=== PATIENT | female | born 1940 | race Caucasian/White ===

== ENCOUNTER 2016-07-11 14:43 | Emergency (ER) | payer OTHER ==
[~2016-07-11] VITALS: Ht 167.6 cm; Wt 95.3 kg
--- NOTE | 2016-07-11 15:34 | PHYS DOC ---
Past Medical History Past Medical History: Diabetes-Type II, GERD Past Surgical History: Tonsillectomy, Tubal ligation Alcohol Use: Occasionally Drug Use: None Adult General Chief Complaint Chief Complaint: MECHANICAL FALL HPI HPI 76-year-old female who states she was out walking and slipped on a nut from a tree and ended on her right side impacting her right side of her head and right shoulder and right hip. She is complaining primarily of right hip pain but states she was able to ambulate and actually drove herself into the department for evaluation. She took naproxen for pain and she states it's adequately controlled at this time. She does not believe she had any loss consciousness. She is not taking any blood thinners. Upon my initial evaluation, she is in no acute distress and is fully alert and oriented and able to answer my questions. She complains of only mild headache. She denies any nausea or vomiting. She does have some mild right-sided neck pain as well. Review of Systems Review of Systems Constitutional: Denies fever or chills [] Eyes: Denies change in visual acuity, redness, or eye pain [] HENT: Denies nasal congestion or sore throat [] Respiratory: Denies cough or shortness of breath [] Cardiovascular: No additional information not addressed in HPI [] GI: Denies abdominal pain, nausea, vomiting, bloody stools or diarrhea [] : Denies dysuria or hematuria [] Musculoskeletal: Denies back pain or joint pain [] Integument: Denies rash or skin lesions [] Neurologic: Denies headache, focal weakness or sensory changes [] Endocrine: Denies polyuria or polydipsia [] Allergies Allergies Allergies Coded Allergies Type Severity Reaction Last Updated Verified codeine Allergy Mild Nausea and Vomiting 04/04/15 Yes Physical Exam Physical Exam Constitutional: Well developed, well nourished, no acute distress, non-toxic appearance. [] HENT: Normocephalic, atraumatic, bilateral external ears normal, oropharynx moist, no oral exudates, nose normal. [] Eyes: PERRLA, EOMI, conjunctiva normal, no discharge. [] Neck: Normal range of motion, no tenderness, supple, no stridor. [] Cardiovascular:Heart rate regular rhythm, no murmur [] Lungs & Thorax: Bilateral breath sounds clear to auscultation [] Abdomen: Bowel sounds normal, soft, no tenderness, no masses, no pulsatile masses. [] Skin: Warm, dry, no erythema, no rash. [] Back: No tenderness, no CVA tenderness. [] Extremities: No tenderness, no cyanosis, no clubbing, ROM intact, no edema. [] Neurologic: Alert and oriented X 3, normal motor function, normal sensory function, no focal deficits noted. [] Psychologic: Affect normal, judgement normal, mood normal. [] Current Patient Data Vital Signs Vital Signs Date Time Temp Pulse Resp B/P Pulse Ox O2 Delivery O2 Flow Rate FiO2 07/11/16 15:00 97.6 88 18 161/79 100 Room Air 97.6 EKG EKG [] Radiology/Procedures Radiology/Procedures Plain films of the right hip and AP pelvis demonstrate a right pubic bone fracture which is consistent with her symptoms. In films of her right shoulder as interpreted by the radiologist did not show an acute shoulder abnormality area. CT of her head and neck were negative for any acute abnormalities as well. Course & Med Decision Making Course & Med Decision Making Pertinent Labs and Imaging studies reviewed. (See chart for details) This 68-year-old female who has a right pubic bone fracture will be discharged and told to continue taking her walker and to take aspirin for DVT prophylaxis. I discussed the case with the orthopedic surgeon, Dr. Gutierres, grade with this plan and the she will be safe to be followed in his office in the next several days. Prescriptions for aspirin, Penn, and cyclobenzaprine will be prescribed. I will be explicitly stating to her to use her walker only and to minimize her ambulation as much as possible for the next several days. Dragon Disclaimer Dragon Disclaimer This electronic medical record was generated, in whole or in part, using a voice recognition dictation system. Departure Departure Impression: Primary Impression: Pubic bone fracture Disposition: 01 HOME, SELF-CARE Admitting Physician: Other Condition: STABLE Referrals: CALEB GUTIERRES MD Additional Instructions: Please use your walker at home for the next the several days and follow up with the orthopedic surgeon, Dr. Gutierres, in the next several days. Try to rest and avoid excessive use of your right lower extremity. Take your aspirin as prescribed. Scripts Cyclobenzaprine Hcl 10 Mg [id number] Mg PO TID #15 TAB Prov:NEY MATTA DO 07/11/16 Hydrocodone/Apap 5-325 (Penn 5-325 Tablet)1 Each Tablet1 Tab PO PRN Q6HRS PRN PAIN #10 TAB Ref 0 Prov:NEY MATTA DO 07/11/16 Aspirin 325 Mg [id number] Mg PO DAILY #10 Prov:NEY MATTA DO 07/11/16 NEY MATTA DO Jul 11, 2016 15:34
--- NOTE | 2016-07-11 16:18 | RAD ---
CT of the head without contrast, 07/11/2016: History: Fall, pain Comparison is made to a study from 04/04/2015. The ventricles are within normal limits in size. There is no shift of the midline structures. There is no evidence of acute intracranial hemorrhage or mass effect. There is calcific plaquing of the distal internal carotid and vertebral arteries. Mild mucosal thickening is present in the ethmoid and maxillary sinuses. IMPRESSION: No acute intracranial abnormality is detected. CT of the cervical spine without contrast, 07/11/2016: Noncontrast scans were obtained with multiplanar reconstructions produced. There are mild degenerative changes involving scattered facet joints bilaterally. There are mild scattered spurs in the lower cervical spine. The cervical spinal canal is well maintained. No fracture or dislocation is identified. IMPRESSION: 1. Mild multilevel degenerative change. 2. No acute bony abnormality is detected. PQRS Compliance Statement: One or more of the following individualized dose reduction techniques were utilized for this examination: 1. Automated exposure control 2. Adjustment of the mA and/or kV according to patient size 3. Use of iterative reconstruction technique
--- NOTE | 2016-07-11 16:21 | RAD ---
Right shoulder, 3 views, 07/11/2016: History: Hip and shoulder pain, fall The bony structures are demineralized. No shoulder fracture or dislocation is identified. There are mild degenerative changes at the shoulder. Old healed right-sided rib fractures are present. IMPRESSION: 1. Demineralization. 2. No acute right shoulder abnormality is detected.
--- NOTE | 2016-07-11 16:24 | RAD ---
Pelvis with right hip, 3 views, 07/11/2016: History: Fall, pain There is deformity of the right pubic bone compatible with a fracture extending to involve the superior pubic ramus. The age of this fracture is unclear. No hip fracture or dislocation is identified. There is mild narrowing at both hip joints. IMPRESSION: Right pubic bone fracture of uncertain age. Correlation with the site of the patient's current pain is suggested.
[2016-07-11 17:00] VITALS: BP 157/78
[2016-07-11] MEDS ORDERED: CYCL10TA2 PO (17:15)
[2016-07-11] MEDS ORDERED: ASPI325T4 PO (17:15)
[2016-07-11] MEDS ORDERED: HYDR-971 PO (17:15)
== END 2016-07-11 17:52 | disposition home or self-care (01) ==
LOC: ER 14:43
DX: S32.501A Unspecified fracture of right pubis, initial encounter for closed fracture (principal); E11.9 Type 2 diabetes mellitus without complications; Z98.51 Tubal ligation status; Z88.5 Allergy status to narcotic agent; W01.0XXA Fall on same level from slipping, tripping and stumbling without subsequent striking against object, initial encounter; Y93.89 Activity, other specified; Y92.89 Other specified places as the place of occurrence of the external cause; Y99.8 Other external cause status
CPT/HCPCS: 70450; 72125; 73030; 73502; 99284-25

== ENCOUNTER 2020-08-23 14:46 | Emergency (ER) | payer MEDICARE, OTHER ==
[~2020-08-23] VITALS: Ht 165.1 cm; Wt 95.0 kg
[~2020-08-23 14:46] MED LIST: ASPI325T8 PO; CYCL10TA2 PO; HYDR-3164 PO
--- NOTE | 2020-08-23 15:33 | ED.ADGEN ---
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 Labs she had drawn approximately 2 weeks ago showed a sodium of 125 and a chloride of 90. Her last labs were in April which showed a sodium of 136 and a chloride of 100. Patient denies any symptoms, changes in gait, confusion. Denies any new medications. Takes furosemide and potassium and has not changed those a long time. Patient states she normally does not drink enough water but on the day she was having labs done she recalls drinking approximately 2 bottles of water prior to prepare for her lab draw. Review of Systems: Review of Systems: All other systems within normal limits except for as noted in the HPI Allergies: Allergies: Allergies Coded Allergies Type Severity Reaction Last Updated Verified codeine Allergy Mild Nausea and Vomiting 04/04/15 Yes Physical Exam: PE: Constitutional: Well developed, well nourished, no acute distress, non-toxic appearance. [] HENT: Normocephalic, atraumatic, bilateral external ears normal, nose normal. [] Eyes: PERRLA, conjunctiva normal, no discharge. [] Neck: No rigidity, supple, no stridor. [] Cardiovascular: Regular rate and rhythm, brisk cap refill [] Lungs & Thorax: Non labored symmetric respirations, no tachypnea or respiratory distress [] Abdomen: Soft, nondistended. Skin: Warm, dry, no erythema, no rash. [] Back: Unremarkable Extremities: No deformities, range of motion grossly intact, no lower extremity edema [] Neurologic: Alert and oriented X 3, no focal deficits noted. [] Psychologic: Affect normal, judgement normal, mood normal. [] Current Patient Data: Labs: Laboratory Tests Test 08/23/20 16:45 White Blood Count 4.2 x10^3/uL (4.0-11.0) Red Blood Count 3.49 x10^6/uL (3.50-5.40) L Hemoglobin 10.6 g/dL (12.0-15.5) L Hematocrit 32.8 % (36.0-47.0) L Mean Corpuscular Volume 94 fL (79-100) Mean Corpuscular Hemoglobin 30 pg (25-35) Mean Corpuscular Hemoglobin Concent 32 g/dL (31-37) Red Cell Distribution Width 15.7 % (11.5-14.5) H Platelet Count 209 x10^3/uL (140-400) Neutrophils (%) (Auto) 66 % (31-73) Lymphocytes (%) (Auto) 25 % (24-48) Monocytes (%) (Auto) 7 % (0-9) Eosinophils (%) (Auto) 2 % (0-3) Basophils (%) (Auto) 1 % (0-3) Neutrophils # (Auto) 2.8 x10^3/uL (1.8-7.7) Lymphocytes # (Auto) 1.1 x10^3/uL (1.0-4.8) Monocytes # (Auto) 0.3 x10^3/uL (0.0-1.1) Eosinophils # (Auto) 0.1 x10^3/uL (0.0-0.7) Basophils # (Auto) 0.0 x10^3/uL (0.0-0.2) Urine Collection Type Unknown Urine Color Yellow Urine Clarity Clear Urine pH 5.0 (<5.0-8.0) Urine Specific Industry 1.010 (1.000-1.030) Urine Protein Negative mg/dL (NEG-TRACE) Urine Glucose (UA) Negative mg/dL (NEG) Urine Ketones (Stick) Negative mg/dL (NEG) Urine Blood Negative (NEG) Urine Nitrite Negative (NEG) Urine Bilirubin Negative (NEG) Urine Urobilinogen Dipstick 0.2 mg/dL (0.2 mg/dL) Urine Leukocyte Esterase Trace (NEG) Urine RBC 0 /HPF (0-2) Urine WBC Occ /HPF (0-4) Urine Squamous Epithelial Cells Few /LPF Urine Bacteria 0 /HPF (0-FEW) Urine Hyaline Casts Few /HPF Urine Mucus Slight /LPF Sodium Level 143 mmol/L (136-145) Potassium Level 3.4 mmol/L (3.5-5.1) L Chloride Level 104 mmol/L (98-107) Carbon Dioxide Level 29 mmol/L (21-32) Anion Gap 10 (6-14) Blood Urea Nitrogen 19 mg/dL (7-20) Creatinine 1.2 mg/dL (0.6-1.0) H Estimated GFR (Cockcroft-Gault) 43.0 BUN/Creatinine Ratio 16 (6-20) Glucose Level 94 mg/dL (70-99) Calcium Level 8.6 mg/dL (8.5-10.1) Phosphorus Level 3.0 mg/dL (2.6-4.7) Magnesium Level 2.0 mg/dL (1.8-2.4) Total Bilirubin 0.3 mg/dL (0.2-1.0) Aspartate Amino Transferase (AST) 22 U/L (15-37) Alanine Aminotransferase (ALT) 16 U/L (14-59) Alkaline Phosphatase 84 U/L (46-116) Total Protein 7.0 g/dL (6.4-8.2) Albumin 3.6 g/dL (3.4-5.0) Albumin/Globulin Ratio 1.1 (1.0-1.7) Thyroid Stimulating Hormone (TSH) 0.902 uIU/mL (0.358-3.74) Laboratory Tests 08/23/20 16:45 Laboratory Tests 08/23/20 16:45 Vital Signs: Vital Signs Date Time Temp Pulse Resp B/P (MAP) Pulse Ox O2 Delivery O2 Flow Rate FiO2 08/23/20 17:55 64 16 164/86 (112) 99 08/23/20 15:50 98.6 Room Air 98.6 EKG: EKG: [] Heart Score: C/O Chest Pain: No Risk Factors: Risk Factors: DM, Current or recent (<one month) smoker, HTN, HLP, family history of CAD, obesity. Risk Scores: Score 0 - 3: 2.5% MACE over next 6 weeks - Discharge Home Score 4 - 6: 20.3% MACE over next 6 weeks - Admit for Clinical Observation Score 7 - 10: 72.7% MACE over next 6 weeks - Early Invasive Strategies Radiology/Procedures: Radiology/Procedures: [] Course & Med Decision Making: Course & Med Decision Making Pertinent Labs and Imaging studies reviewed. (See chart for details) [] Dragon Disclaimer: Dragon Disclaimer: This electronic medical record was generated, in whole or in part, using a voice recognition dictation system. Departure Departure Impression: Primary Impression: Abnormal laboratory test result Disposition: HOME / SELF CARE / HOMELESS Condition: STABLE Referrals: NISHA AVILA GUN STRIPER (PCP) Additional Instructions: Follow-up with her primary care provider regarding any further issues. ELIN MEEK MD August 23, 2020 15:33
[2020-08-23 16:56] LABS: BASO % 1 % (0-3); EOS # 0.1 x10^3/uL (0.0-0.7); EOS % 2 % (0-3); HEMATOCRIT 32.8 % (36.0-47.0); HEMOGLOBIN 10.6 g/dL (12.0-15.5); LYMPH # 1.1 x10^3/uL (1.0-4.8); LYMPH % 25 % (24-48); MEAN CORPUSCULAR HEMOGLOBIN 30 pg (25-35); MEAN CORPUSCULAR HGB CONC 32 g/dL (31-37); MEAN CORPUSCULAR VOLUME 94 fL (79-100); MONO # 0.3 x10^3/uL (0.0-1.1); MONO % 7 % (0-9); NEUT # 2.8 x10^3/uL (1.8-7.7); NEUT % 66 % (31-73); PLATELET COUNT 209 x10^3/uL (140-400); RED BLOOD COUNT 3.49 x10^6/uL (3.50-5.40); RED CELL DISTRIBUTION WIDTH 15.7 % (11.5-14.5); WHITE BLOOD COUNT 4.2 x10^3/uL (4.0-11.0)
[2020-08-23 17:06] LABS: BILIRUBIN,URINE NEGATIVE (NEG); CLARITY,URINE CLEAR; COLOR,URINE YELLOW; NITRITE,URINE NEGATIVE (NEG); PROTEIN,URINE NEGATIVE (NEG-TRACE); UROBILINOGEN,URINE 0.2 mg/dL (0.2 mg/dL)
[2020-08-23 17:14] LABS: CALCIUM 8.6 mg/dL (8.5-10.1); CREATININE 1.2 mg/dL (0.6-1.0); POTASSIUM 3.4 mmol/L (3.5-5.1)
[2020-08-23 17:20] LABS: HYALINE CASTS, URINE FEW /HPF
[2020-08-23 17:21] LABS: ALBUMIN 3.6 g/dL (3.4-5.0); ALBUMIN/GLOBULIN RATIO 1.1 (1.0-1.7); BACTERIA,URINE 0 /HPF (0-FEW); RBC,URINE 0 /HPF (0-2); TOTAL BILIRUBIN 0.3 mg/dL (0.2-1.0); WBC,URINE OCC /HPF (0-4)
--- NOTE | 2020-08-23 17:30 | EKG ---
[facility] [address] [place] [address] Test Date: 2020-08-23 Test Time: 16:07:40 Pat Name: NABOR HERRERA Department: Room: Gender: F Heat Treatment Technician: : 1940 Requested By: ELIN MEEK Order Number: [id number] Reading MD: Measurements Intervals [place] Rate: 66 P: 41 OR: 190 QRS: 11 QRSD: 82 T: 38 QT: 394 QTc: 415 Interpretive Statements SINUS RHYTHM QRS(T) CONTOUR ABNORMALITY CONSIDER ANTEROLATERAL MYOCARDIAL DAMAGE POSSIBLY ABNORMAL ECG RI6.01 No previous ECG available for comparison
[2020-08-23 17:55] VITALS: BP 164/86
== END 2020-08-23 17:55 | disposition home or self-care (01) ==
LOC: ER 14:46
DX: E87.1 Hypo-osmolality and hyponatremia (principal); R79.9 Abnormal finding of blood chemistry, unspecified; K21.9 Gastro-esophageal reflux disease without esophagitis; E11.9 Type 2 diabetes mellitus without complications; Z98.51 Tubal ligation status; Z88.5 Allergy status to narcotic agent
CPT/HCPCS: 36415; 80053; 81001; 83735; 84100; 84443; 85025; 87086; 93005; 99284